=== PATIENT | male | born 1990 | race Caucasian/White ===

== ENCOUNTER 2017-05-08 23:06 | Emergency (ER) | payer BC, MEDICAID, SELFPAY ==
[2017-05-08 23:06] VITALS: BP 135/69; PULSE 83; RESP 16; TEMP 36.6; O2SAT 100; BMI 35.9
--- NOTE | 2017-05-08 23:19 | ED.VISSUMM ---
- ER Visit Summary Date of Service: 05/08/17 Chief Complaint: Right elbow injury History of Present Illness: The patient is a 27 M who is right-hand dominant presents to the emergency department with right elbow injury. Patient tripped over 1 of his daughter shoes earlier today. He landed on his right elbow. Since then he has had increased pain and swelling. He did not strike his head. He denies loss of consciousness. He denies any other injury. Physical Examination: Relatively unremarkable. Patient does have some pain with extension. There is some ecchymosis over the lateral epicondyle. There is no pain with pronation or supination of the elbow. He has normal pulses. There is no gross laxity. There is no significant joint effusion. Test Results: [] Emergency Department Course and Treatment: I did obtain plain films of the elbow. There is no evidence of acute facture. I do feel the patient likely has a contusion. He is able to flex and extend with some pain. I have no suspicion for radial head fracture. He will be given anti-inflammatories and an Abhijit wrap. He will be discharged home. Treatment Plan: [] Disposition: Discharge Impression: 1. Right elbow contusion This note was generated with [employer] dictation software. It may contain incorrect words, spelling, and punctuation that were not noted in review of the chart prior to signing ED Disposition - Plan for ED Patient: Chief Complaint: Upper Extremity Injury Instructions: ED Sprain Elbow Prescriptions: Naproxen [Naprosyn] 500 mg PO BID #20 tab Referrals: Fidencio Arenas III, MD [Primary Care Provider] -
--- NOTE | 2017-05-08 23:25 | RAD_ITS ---
STUDY: X-RAY - RIGHT ELBOW REASON FOR EXAM: Male, 27 years old. Trauma TECHNIQUE: 3 view(s) of the elbow. COMPARISON: None. FINDINGS: Normal visualized humerus, radius and ulna. Normal radiocapitellar and ulnotrochlear articulations. There is mild soft tissue edema posterior to the elbow joint. RAD/Elbow min 3 Views IMPRESSION: There is no evidence of fracture or dislocation. Electronically Signed: Varinder Hays MD at 23:46 EST , Service support ,
[2017-05-08] MEDS: Naproxen 500 MG Tablet PO (23:35)
== END 2017-05-09 00:11 | disposition home or self-care (01) ==
LOC: ED 05-09
PROVIDERS: Emergency Provider Emergency Medicine; Family Provider Family Medicine; PCP Family Medicine
DX: S50.01XA Contusion of right elbow, initial encounter (principal); W18.09XA Striking against other object with subsequent fall, initial encounter; Y93.9 Activity, unspecified; Y92.89 Other specified places as the place of occurrence of the external cause; Y99.9 Unspecified external cause status
CPT/HCPCS: 73080; 99283

== ENCOUNTER 2018-08-10 23:49 | Emergency (ER) | payer BC, SELFPAY ==
[2018-08-03 10:47] VITALS: BMI 33.7
[2018-08-10 23:49] VITALS: BP 169/81; PULSE 90; RESP 18; TEMP 36.7; O2SAT 98; BMI 34.7
--- NOTE | 2018-08-11 00:04 | ED.VISSUMM ---
- ER Visit Summary Date of Service: 08/11/18 Chief Complaint: Facial pressure, headache History of Present Illness: The patient is a 28 M with history of cleft palate presents to the emergency department with headache. Patient states that his headache began yesterday. He describes a gradual pressure behind his eyes and his face. He has had nasal drainage and a mild sore throat. He states it went away. Today, it returned. He states is worse when he leans over. He denies any visual change. He denies any neck pain. He does not think he had fever or chills. He has taken some ibuprofen with some improvement. He denies any trauma. He denies any trouble speaking or swallowing. Physical Examination: Well-appearing patient is in no acute distress. Head is normocephalic, atraumatic. Pupils equal round reactive, extraocular muscles intact. There is no temporal artery tenderness. There is tenderness over bilateral maxillary sinuses. TMs are erythematous with distortion. No mastoid tenderness. There is no vesicular rash. Neck supple. Kernig's and Brudzinski's are negative. Heart regular rate and rhythm. Lungs clear, chest nontender. Abdomen soft, nontender, nondistended. Neuro exam displays no focal or lateralizing deficit. 2+ symmetric lower extremity reflexes. No clonus. No ataxia or gait abnormality. Test Results: [] Emergency Department Course and Treatment: Patient has a normal neurologic examination. His headache does seem consistent with sinusitis. His bilateral otitis. He is not meningitic. He is not encephalopathic. I am going to treat him with Augmentin and prednisone. Is given his first dose here. He was counseled on concerning symptoms and reasons to return. He will be discharged home. Treatment Plan: [] Disposition: Discharge Impression: 1. Sinus headache This note was generated with [employer] dictation software. It may contain incorrect words, spelling, and punctuation that were not noted in review of the chart prior to signing ED Disposition - Plan for ED Patient: Instructions: ED Headache Sinus Prescriptions: Amox/Clavulanate Tablet [Augmentin Tablet] 875 mg PO Q12H #20 tab Prednisone [Deltasone] 40 mg PO DAILY #10 tab Referrals: Fidencio Arenas III, MD [Primary Care Provider] -
[2018-08-11] MEDS: Ibuprofen 600 MG Tablet PO (00:05)
[2018-08-11] MEDS: Amox/Clavulanate 875 MG Tablet PO (00:05)
[2018-08-11] MEDS: predniSONE 20 MG Tablet 60 MG PO (00:06)
[2018-08-11 00:07] VITALS: BP 169/81; PULSE 90; RESP 18; O2SAT 98
== END 2018-08-11 00:12 | disposition home or self-care (01) ==
PROVIDERS: Emergency Provider Emergency Medicine; Family Provider Family Medicine; PCP Family Medicine
DX: J32.9 Chronic sinusitis, unspecified (principal); R51 Headache; Z87.730 Personal history of (corrected) cleft lip and palate
CPT/HCPCS: 99283

== ENCOUNTER 2019-01-22 02:21 | Emergency (ER) | payer OTHER, SELFPAY ==
[2019-01-22 02:21] VITALS: BP 152/81; PULSE 95; RESP 15; TEMP 36.4; O2SAT 99; BMI 34.9
--- NOTE | 2019-01-22 02:34 | RAD_ITS ---
HISTORY: LATERAL SIDE OF RIGHT FOOT PAIN FROM INJURY AT WORK TONIGHT ABOUT AN HOUR AGO COMPARISON: None FINDINGS: # of images incl. paperwork: 3 XR Foot Min 3 Views : No acute fracture or subluxation. A healing fracture is present through the proximal end of the fourth metatarsal. There is lucency, sclerosis, and hyperostosis about the healing fracture. Plantar calcaneal spur on the calcaneus The joint spaces are well-maintained. No radiopaque foreign body is seen. RAD/Foot min 3 Views IMPRESSION: Lucency at the proximal end of the fourth metatarsal indicative of a fracture, however, there is surrounding sclerosis and thickening of the bone within the proximal fourth metatarsal indicative of a healing fracture at 0304 Reported and signed by: Jonathan Garcia MD Electronically Signed: Jonathan Garcia MD at 3:03 EST Tel , Service support ,
--- NOTE | 2019-01-22 02:42 | ED.VISSUMM ---
- ER Visit Summary Date of Service: 01/22/19 Chief Complaint: Right foot injury History of Present Illness: The patient is a 29 M presenting with right foot pain. Patient was at work wearing work boots. He states he stepped down wrong. He is unsure if he stepped on something. He did not fall to the ground. He complains of right foot pain. Denies other injuries. Physical Examination: Vitals are stable. Patient is afebrile. Alert no acute distress. HEENT exam is unremarkable. Lungs are clear and equal bilaterally. Heart is regular rate and rhythm. Extremities right lateral foot tenderness. Normal pulses. Ankle is nontender. Skin is warm and dry. Remainder of exam is unremarkable. Emergency Department Course and Treatment: Right foot x-ray shows lucency at the proximal end of the fourth metatarsal indicative of a fracture, however, there is surrounding sclerosis and thickening of the bone within the proximal fourth metatarsal indicative of a healing fracture. Patient has pain in this area. He is given a boot orthosis and crutches. Advised nonweightbearing until follow-up with orthopedics. Advised return to ED for worsening complaints. Disposition: Discharge home Impression: Right foot injury This note was generated with [employer] dictation software. It may contain incorrect words, spelling, and punctuation that were not noted in review of the chart prior to signing ED Disposition - Plan for ED Patient: Instructions: FRACTURE, Foot Prescriptions: Hydrocodone Bitart/Apap 5-325 [[place] 5MG-325MG] 1 tab PO Q6H PRN PRN 3 Days #10 tab PRN Reason: Pain Prescription Printed Referrals: Fidencio Arenas III, MD [Primary Care Provider] -
--- NOTE | 2019-01-22 03:33 | ED.DEP ---
ED Disposition - Plan for ED Patient: Instructions: FRACTURE, Foot Prescriptions: Hydrocodone Bitart/Apap 5-325 [[place] 5MG-325MG] 1 tablet PO Q6H PRN PRN 3 Days #10 tablet PRN Reason: Pain Referrals: Fidencio Arenas III, MD [Primary Care Provider] -
[2019-01-22 03:45] VITALS: BP 149/86; PULSE 92; RESP 16; O2SAT 97
== END 2019-01-22 03:54 | disposition home or self-care (01) ==
PROVIDERS: Emergency Provider Emergency Medicine; Family Provider Family Medicine; PCP Family Medicine
DX: S99.921A Unspecified injury of right foot, initial encounter (principal); Y99.0 Civilian activity done for income or pay; W22.8XXA Striking against or struck by other objects, initial encounter; Y92.9 Unspecified place or not applicable; Z72.0 Tobacco use
CPT/HCPCS: 73630; 99284

== ENCOUNTER 2023-11-24 09:05 | Emergency (ER) | payer SELFPAY ==
[2023-11-24 09:05] VITALS: BP 172/82; PULSE 97; RESP 14; TEMP 36.6; O2SAT 98; BMI 39.1
--- NOTE | 2023-11-24 09:16 | RAD_ITS ---
STUDY: X-RAY - UNILATERAL RIBS ( RIGHT ) WITH CHEST REASON FOR EXAM: Male, 33 years old. Injury, Pain TECHNIQUE - RIBS: 4 view(s) of the ribs. TECHNIQUE - CHEST: Single PA view of the chest. COMPARISON: None. FINDINGS - RIBS: Normal visualized ribs without a demonstrated fracture. FINDINGS - CHEST: The lungs are clear and expanded. There is no demonstrated pleural abnormality. Normal size heart. Normal mediastinum and arian. Normal visualized pulmonary arteries. Normal visualized aortic arch and descending thoracic aorta. Normal visualized thoracic spine. Normal visualized ribs, clavicles, and shoulders. There is no demonstrated abnormality of the visualized soft tissue structures of the upper abdomen. RAD/Ribs Uni Min 3V w/PA Chest IMPRESSION: RIBS: Normal x-ray examination of the ribs. CHEST: Normal x-ray examination of the chest. Electronically Signed: Ronal Verma MD at 10:44 EDT ,
--- NOTE | 2023-11-24 09:18 | EDS_ITS ---
HPI History of Present Illness Chief Complaint: Other, Pain/Inj Narrative Narrative: Chief complaint and HPI: Right-sided rib pain after injury. 33-year-old male with no significant past medical history presents for evaluation of right-sided rib pain after playing football a couple days ago with his kids. Patient states that he fell onto his right shoulder/side during the game. He states since then he has been having right sided pain. Worse with yawning, coughing, and movement. He points to his anterior ribs as well as his posterior trapezius muscle where it hurts. He denies any pain in the right upper extremity or shoulder. Denies any weakness. Denies any numbness or tingling. Denies any back or neck pain. Did not hit his head. No LOC. Denies injury elsewhere. Denies abdominal pain nausea vomiting. Denies chest pain. Has tried Tylenol and ibuprofen. Has tried IcyHot. Review of systems: See HPI Medications: As listed on the chart Allergies: As listed on the chart PFSH: Per chart Vital signs: As listed on the chart. Reviewed. Physical exam: Gen: A&O x3, NAD Head: Normocephalic, atraumatic Eyes: No sclera icterus, conjunctiva clear, PERRL, EOMI ENT: Moist mucous membranes Neck: Trachea midline, No JVD, Nontender, full range of motion CV: RRR, no murmurs, mild tenderness to palpation of the upper anterior/lateral ribs on the right- no ecchymosis or signs of trauma Resp: Lungs CTA BL, no w/r/c GI: Abd soft, non-distended, non-tender, no r/r/g Musc: Full ROM especially of the right upper extremity without eliciting any pain, no deformity, no spinal TTP, no albina step-offs, mild tenderness to palpation of the superior posterior portion of the trapezius muscle-no ecchymosis or obvious signs of injury Skin: Warm, dry, intact Neuro: Alert, oriented, grossly intact, sensation intact, GCS 15 Psych: Cooperative, appropriate mood and affect [facility] Medical History (Updated 11/24/23 @ 11:[address] Chas Granados, ) History of cleft palate Home Medications ?Medication ?Instructions ?Recorded ?Last Taken ?Type cyclobenzaprine 5 mg tablet 5 mg PO TID PRN muscle spasm 3 11/24/23 Unknown Rx days #9 tabs Allergy/AdvReac Type Severity Reaction Status Date / Time No Known Allergies Allergy Verified 11/24/23 09:06 Family History (Updated 08/03/18 @ 10:40 by Savita Hernandez) Father Atrial fibrillation Social History (Updated 08/03/18 @ 11:48 by Aminata Sunshine PA, PA) Smoking Status: Current every day smoker alcohol intake: current alcohol intake frequency: holidays/special occasions only EXAM Physical Exam Const Vital Signs: 11/24/23 09:05 Temperature 98 F Temperature Source Temporal Pulse Rate 97 Respiratory Rate 14 Blood Pressure 172/82 H Blood Pressure Mean 112 Pulse Ox 98 Oxygen Delivery Method Room Air MDM MDM MDM Narrative Medical decision making narrative: 33-year-old male presents for evaluation of right sided discomfort after playing football. No true chest pain. Landed on his right side. See physical exam findings. Differential diagnosis includes but is not limited to contusion, m uscle spasm, fracture. Toradol given for pain. X-ray of the chest and right ribs ordered. I do not think any laboratory workup is needed at this time. X- ray was reviewed by me no fracture or dislocation. Patient's pain is likely secondary to a muscle spasm/strain. Patient was updated on the results and confirmed understanding. He is stable to discharge home. Pain did improve with Toradol. He was educated that he can take Tylenol ibuprofen as needed at home. Okay for heat and IcyHot. He was educated to rest. Will prescribe a muscle relaxer as needed. He did not receive 1 today secondary to him driving. He was educated that he cannot drive on this. Follow-up with PCP. He confirmed understanding the plan. Diagnostic: Interpreted by me/EM physician: No fracture or dislocation of the ribs. No pneumonia, pneumothorax, effusion. Impression: 1. Right chest wall strain 2. Right chest wall contusion Discharge Plan Triage Chief Complaint: Other, Pain/Inj Other Complaint: Upper Extremity Injury ED Provider: Chas Granados Dx/Rx/DC Orders Clinical Impression: Chest wall contusion Instructions: ED Chest Wall Contusion Prescriptions: New cyclobenzaprine 5 mg tablet 5 mg PO TID PRN (Reason: muscle spasm) 3 Days Qty: 9 0RF Primary Care Provider: Care Physician,Vera Primary Referrals: Yung Millard MD [Non-Staff] - 3-5 Days if not improving Activity Restrictions/Additional Instructions: Rest. Tylenol and ibuprofen as needed for pain. IcyHot and heat okay. Follow- up with PCP provided if symptoms do not improve. Print Language: [place] Citizen Disposition Disposition: Home, Self Care
[2023-11-24] MEDS: Ketorolac 30 MG/ML Syringe IM (09:58)
[2023-11-24 11:14] VITALS: BP 145/71; PULSE 75; RESP 16; TEMP 36.7; O2SAT 100
== END 2023-11-24 11:14 | disposition home or self-care (01) ==
PROVIDERS: Emergency Provider Surgery; Visit Provider Surgery
DX: S20.20XA Contusion of thorax, unspecified, initial encounter (principal); S29.011A Strain of muscle and tendon of front wall of thorax, initial encounter; F17.200 Nicotine dependence, unspecified, uncomplicated; Y93.61 Activity, american tackle football; W19.XXXA Unspecified fall, initial encounter
CPT/HCPCS: 71101; 96372; 99283